=== PATIENT | male | born 1945 | race Caucasian/White ===

== ENCOUNTER 2020-08-18 13:17 | Emergency (ER) | payer MEDICARE ==
[~2020-08-18] VITALS: Ht 188 cm; Wt 88.1 kg
--- NOTE | 2020-08-18 13:46 | NUR ---
PT TO ROOM FROM LOBBY, CHANGED INTO GOWN, RESPONDS APPROP TO STAFF, NAD AT REST, COMFORT MEASURES PROVIDED, CALL LIGHT WITHIN REACH.
[2020-08-18] MEDS ORDERED: FINASTERIDE (13:54)
[2020-08-18] MEDS ORDERED: VALIUM (13:54)
--- NOTE | 2020-08-18 14:06 | NUR ---
PT TO XR
--- NOTE | 2020-08-18 14:16 | NUR ---
PT RETURNED FROM XR
[2020-08-18] MEDS ORDERED: PROPOFOL 10 MG/ML, 20ML IV ONE (14:30)
[2020-08-18] MEDS ORDERED: SODIUM CHLORIDE FLUSH 10ML SYR IVF ONE (14:30)
[2020-08-18] MEDS ORDERED: PROPOFOL 10 MG/ML, 20ML ONE (14:40)
--- NOTE | 2020-08-18 15:31 | NUR ---
PT UPRIGHT ON GURNEY AWAKE & COMFORTABLE AT REST, BACK TO BASELINE, RESPOINDS TO SPONTANEOUS STIMULI, NAD, COMFORT MEASURES PROVIDED, CALL LIGHT WITHIN REACH. (SEE PAPER CHARTING FOR CONSCIOUS SEDATION PROCEDURE)
[2020-08-18 15:53] VITALS: BP 162/99
--- NOTE | 2020-08-18 16:16 | NUR ---
Patient given sling & discharge instructions and they have confirmed that they understand the instructions. Patient ambulatory with steady gait.
== END 2020-08-18 16:17 | disposition home or self-care (01) ==
LOC: ED 16:00
DX: S43.005A Unspecified dislocation of left shoulder joint, initial encounter (principal); W18.30XA Fall on same level, unspecified, initial encounter; Y93.89 Activity, other specified; Y92.410 Unspecified street and highway as the place of occurrence of the external cause; Y99.8 Other external cause status
CPT/HCPCS: 23650; 73030; 99152; 99285; J2704